=== PATIENT | male | born 1945 | race Caucasian/White ===

== ENCOUNTER 2021-09-27 05:26 | Inpatient (IN) | payer MEDICARE, OTHER ==
[~2021-09-27] VITALS: Ht 180.3 cm; Wt 112.2 kg
--- NOTE | 2021-09-27 05:51 | PHYS DOC ---
Adult General Chief Complaint Chief Complaint: WEAKNESS/GENERALIZED HPI HPI Patient is an 81-year-old male with a past medical history of CAD, CHF, A. fib on Xarelto who presents with a chief complaint of generalized weakness over the last week or so. [facility] [place] [facility]. Denies any headache, change in vision, pain or trouble swallowing, congestion, chest pain, abdominal pain, nausea, vomiting. Does endorse some shortness of breath and cellulitis on his lower legs. (GLENROY ALCAZAR MD) Review of Systems Review of Systems Constitutional: Denies fever or chills [] Eyes: Denies change in visual acuity, redness, or eye pain [] HENT: Denies nasal congestion or sore throat [] Respiratory: Denies cough or shortness of breath [] Cardiovascular: No additional information not addressed in HPI [] GI: Denies abdominal pain, nausea, vomiting, bloody stools or diarrhea [] : Denies dysuria or hematuria [] Musculoskeletal: Denies back pain or joint pain [] Integument: Denies rash or skin lesions [] Neurologic: Denies headache, focal weakness or sensory changes [] Endocrine: Denies polyuria or polydipsia [] All other systems were reviewed and found to be within normal limits, except as documented in this note. (GLENROY ALCAZAR MD) Allergies Allergies Allergies Coded Allergies Type Severity Reaction Last Updated Verified Penicillins Allergy Unknown 09/27/21 Yes (GLENROY ALCAZAR MD) Physical Exam Physical Exam Constitutional: Well developed, well nourished, no acute distress, non-toxic appearance. [] HENT: Normocephalic, atraumatic, bilateral external ears normal, oropharynx moist, no oral exudates, nose normal. [] Eyes: conjunctiva normal, no discharge. [] Neck: Normal range of motion, no tenderness, supple, no stridor. [] Cardiovascular: Tachycardia, irregular rhythm Lungs & Thorax: Bilateral breath sounds, with global rhonchi, and tachypnea, as well as hypoxia on room air Abdomen: soft, no tenderness, no masses, no pulsatile masses. [] Skin: Warm, dry, no erythema, no rash. [] Back: No tenderness, no CVA tenderness. [] Extremities: No tenderness, no cyanosis, no clubbing, ROM intact, no edema. [] Neurologic: Alert and oriented X 3, normal motor function, normal sensory function, no focal deficits noted. [] Psychologic: Affect normal, judgement normal, mood normal. [] (GLENROY ALCAZAR MD) EKG EKG [] (GLENROY ALCAZAR MD) Radiology/Procedures Radiology/Procedures [] (GLENROY ALCAZAR MD) Heart Score C/O Chest Pain: No Risk Factors: Risk Factors: DM, Current or recent (<one month) smoker, HTN, HLP, family history of CAD, obesity. Risk Scores: Risk Factors: DM, Current or recent (<one month) smoker, HTN, HLP, family history of CAD, obesity. (GLENROY ALCAZAR MD) Course & Med Decision Making Course & Med Decision Making Patient is an 9-year-old male who presents with a chief complaint of shortness of breath Vital signs notable for tachycardia with irregular rhythm, tachypnea, hypoxia on room air. Placed on the monitor with IV access established. Placed on 2 L nasal cannula. Patient care handed off to day team. [] (GLENROY ALCAZAR MD) Course & Med Decision Making Patient is an 81-year-old male. His labs are significant for a white count of 24.6. He has elevated liver enzymes and some other abnormal labs. See labs for more details. The patient also has an elevated troponin of 146. Given his tachycardia you have this could be demand ischemia. I do not see ST elevation in his EKG. He is not complaining of chest pain. I have ordered a CT angiogram of the patient's chest due to his presentation as well as an elevated D-dimer. We will give reduced dose due to his creatinine of 2.3. He is getting 30 mL/kg of ideal body weight of fluids. His blood pressure has improved to 128/95 with a MAP of 108. The patient has a penicillin allergy and I have ordered meropenem for broad-spectrum coverage. Further discussion with the patient is reviewed mild penicillin allergy from decades ago. I will also cover the patient with vancomycin. His CT angiogram is negative for pulmonary embolus. His heart rate has decreased to around 100. Most likely source of his sepsis is cellulitis. I will admit the patient to the hospital. I spoke with Dr. Albright and he has accepted the patient for admission. (HUGH HARKINS DO) Dragon Disclaimer Dragon Disclaimer This electronic medical record was generated, in whole or in part, using a voice recognition dictation system. (GLENROY ALCAZAR MD) Departure Departure: Impression: Primary Impression: Cellulitis Additional Impression: Sepsis Disposition: 09 ADMITTED INPATIENT Admitting Physician: Jerrica Albright (HUGH HARKINS DO) Condition: GUARDED Problem Qualifiers Primary Impression: Cellulitis Site of cellulitis: extremity Site of cellulitis of extremity: lower extremity Laterality: left Qualified Codes: L03.116 - Cellulitis of left lower limb Additional Impression: Sepsis Sepsis type: Streptococcus, unspecified Sepsis acute organ dysfunction status: with acute organ dysfunction Severe sepsis acute organ dysfunction type: unspecified Severe sepsis shock status: without septic shock Qualified Codes: A40.9 - Streptococcal sepsis, unspecified; R65.20 - Severe sepsis without septic shock GLENROY ALCAZAR MD Sep 27, 2021 05:51 HUGH HARKINS DO Sep 27, 2021 07:47
[2021-09-27] MEDS ORDERED: IV RINGERS SOLUTION,LACTATED 1,000 ML IV ONE (06:00)
[2021-09-27 06:20] LABS: BASO % 0 % (0-3); EOS % 0 % (0-3); HEMATOCRIT 45.1 % (39.0-53.0); HEMOGLOBIN 14.7 g/dL (13.0-17.5); LYMPH # 0.4 x10^3/uL (1.0-4.8); LYMPH % 2 % (24-48); MEAN CORPUSCULAR HEMOGLOBIN 27 pg (25-35); MEAN CORPUSCULAR HGB CONC 33 g/dL (31-37); MEAN CORPUSCULAR VOLUME 83 fL (79-100); MONO # 0.3 x10^3/uL (0.0-1.1); MONO % 1 % (0-9); NEUT # 23.9 x10^3uL (1.8-7.7); NEUT % 97 % (31-73); PLATELET COUNT 281 x10^3/uL (140-400); RED BLOOD COUNT 5.47 x10^6/uL (4.30-5.70); RED CELL DISTRIBUTION WIDTH 18.4 % (11.5-14.5); WHITE BLOOD COUNT 24.6 x10^3/uL (4.0-11.0)
[2021-09-27] MEDS ORDERED: CONTRAST GIVEN. MC PRN (06:30)
[2021-09-27 06:37] LABS: CALCIUM 9.2 mg/dL (8.5-10.1); CREATININE 2.3 mg/dL (0.7-1.3); GFR 27.5; POTASSIUM 3.5 mmol/L (3.5-5.1)
[2021-09-27 06:44] LABS: ALBUMIN 3.4 g/dL (3.4-5.0); ALBUMIN/GLOBULIN RATIO 0.8 (1.0-1.7); MAGNESIUM 2.4 mg/dL (1.8-2.4); TOTAL BILIRUBIN 1.3 mg/dL (0.2-1.0); TOTAL PROTEIN 7.5 g/dL (6.4-8.2)
--- NOTE | 2021-09-27 06:44 | EKG ---
[address] [address] Test Date: 2021-09-27 Test Time: 06:28:30 Pat Name: BIANCA VAZQUEZ Department: Room: Gender: M Quality Supervisor: AUBREY : 1939-12-03 Requested By: GLENROY ALCAZAR Order Number: [id number] Reading MD: Measurements Intervals [place] Rate: 116 P: [place]: QRS: 42 QRSD: 78 T: 22 QT: 304 QTc: 428 Interpretive Statements ATRIAL FLUTTER ABNORMAL ECG RI6.02 Compared to ECG 09/27/2021 06:26:53 No significant changes
[2021-09-27] MEDS ORDERED: IOHEXOL 350 MG/ML 100 ML VIAL. IV ONE (07:00)
[2021-09-27] MEDS ORDERED: MEROPENEM 1 GM in IV NORMAL SALINE 100ML 100 ML IV STA (07:26)
[2021-09-27] MEDS: NORMAL SALINE IV SCH ×4 (07:51→09:30)
[2021-09-27] MEDS ORDERED: IV NORMAL SALINE 500ML 500 ML ONE (07:56)
--- NOTE | 2021-09-27 07:57 | RAD ---
PQRS Compliance Statement: One or more of the following individualized dose reduction techniques were utilized for this examinat ion: 1. Automated exposure control 2. Adjustment of the mA and/or kV according to patient size 3. Use of iterative reconstruction technique CTA CHEST 09/27/2021 7:35 AM INDICATION: Tachycardia, pneumonia COMPARISON: None available TECHNIQUE: Axial CT images of the chest were obtained after the intravenous administration of nonioni c contrast. Coronal and sagittal reformats are provided. Maximum intensity projection images of the t horacic vasculature are provided. FINDINGS: The thyroid gland is normal in appearance. Calcified mediastinal and right hilar lymph nodes suggest sequela prior granulomatous exposure. There is a right hilar lymph node measuring 0.9 cm. There are n o pathologically enlarged axillary, mediastinal or hilar lymph nodes. The heart size is enlarged. Thr ee-vessel coronary artery vascular calcifications are present. No significant pericardial effusion. T horacic aorta is normal in course and caliber. Moderate calcified atheromatous plaque is identified i nvolving the thoracic aorta. There is adequate opacification of the pulmonary arterial system. There there are no filling defects within the pulmonary arterial system to suggest acute or chronic pulmonary embolus. There is a 4 mm solid noncalcified pulmonary nodule in the right middle lobe (series 4, image 82). Th ere is a 4 mm solid noncalcified pulmonary nodule in the left upper lobe (series 4, image 33). There are no pulmonary infiltrates. There are no pleural effusions. No pulmonary vascular congestion or pne umothorax. Visualized portions of the upper abdomen are within normal limits. Fusiform thickening of the adrenal glands may reflect adenomatous hyperplasia. No suspicious osseous lesions are visualized. IMPRESSION: There is no evidence for acute or chronic pulmonary embolism. There is bronchial wall thickening compatible nonspecific bronchitis. There are at least two 4 mm solid noncalcified pulmonary nodules as detailed above.Fleischner guideli fab for incidentally detected pulmonary nodules suggests no routine follow-up for low risk patients a nd optional CT at 12 months for high risk patients with solid noncalcified pulmonary nodules less anjel n 6 mm in size. Cardiomegaly with three-vessel coronary artery vascular calcifications. Electronically signed by: Trinity Fierro MD (09/27/2021 7:54 AM) [facility]
[2021-09-27] MEDS ORDERED: MEROPENEM 1 GM VIAL IV ONE (08:14)
[2021-09-27] MEDS ORDERED: IV NORMAL SALINE 100ML 100 ML ONE (08:14)
[2021-09-27] MEDS ORDERED: ONDANSETRON PF 4 MG/2 ML VIAL. IVP PRN (08:30)
[2021-09-27] MEDS ORDERED: VANCOMYCIN 2 GM in IV NORMAL SALINE 500ML 500 ML IV ONE (09:00)
[2021-09-27 10:07] LABS: % ATYL 2 % (0-0); % BANDS 21 % (0-9); % LYMPHS 4 % (24-48); % METAS 1 % (0-0); % SEGS 72 % (35-66); PLATELET CLUMP PRESENT
[2021-09-27 10:08] LABS: PLT ESTIMATE ADEQUATE (ADEQUATE)
[2021-09-27 11:02] VITALS: BP 128/73
[2021-09-27] MEDS: ACETAMINOPHEN 325 MG TABLET PO PRN (11:46)
--- NOTE | 2021-09-27 11:58 | NUR ---
PT ARRIVED TO ROOM 111 VIA [facility]. PT ARRIVED WITH A 101.[address] TURNER NOTIFIED AT 1155 OF SEVERE POSITIVE SEPSIS SCREEN. DR. TURNER ORDERED NO MORE FLUIDS, AND CONTINUE WITH VANCO AND MEROPENEM. LACTIC ACID ORDER REPEATED FOR 1258. BLOOD CULTURES ORDERED IN ER. PT ON 2L NASAL CANULA AND RESTING IN BED. PICTURE TAKEN OF LEFT LOWER LEG CELLULITIS.
[2021-09-27] MEDS: VANCOMYCIN PER PHARMACY MC PRN (12:08)
--- NOTE | 2021-09-27 12:10 | NUR ---
Pharmacy Vancomycin Dosing Note S:Consulted to monitor and dose vancomycin started 09/27/21. O:BIANCA VAZQUEZ is a 75 year old M with Cellulitis Sepsis, . Height: 5 feet, 11 inches Weight: 112.2 kg [place] Body Weight: 75.30 Adjusted Body Weight: 90.06 Dosing Weight: Actual Other Antibiotics: MEROPENEM LABS: Last BUN: 25 Last Creatinine: 2.3 Creatinine Clearance: 35.9 Last WBC: 24.6 Last Procalcitonin: Tmax (past 24 hours): Microbiology: I/O: Drug Levels: Last level: on at Last dose given at Vancomycin Dosing: Loading Dose: 2000 mg x1 Dosing Weight: Actual Target Trough: 15-20 A: Based on: BASED ON PHYSICIAN REQUEST FOR DOSING P: 1. Begin Vancomycin 2000MG LOADING DOSE, THEN 1750 mg IV q24h 2. Follow up Trough level on 09/29/21 at 0830 3. Pharmacy will continue to monitor, follow and adjust therapy as needed. JUNE SILVER, 09/27/21 1210
[2021-09-27] MEDS ORDERED: LOSA100T14 PO (12:41)
[2021-09-27] MEDS ORDERED: BUSP10TA PO (12:41)
[2021-09-27] MEDS ORDERED: TRIA10.8 NS (12:41)
[2021-09-27] MEDS ORDERED: EMPA25TA PO (12:41)
[2021-09-27] MEDS ORDERED: CYAN500T17 PO (12:41)
[2021-09-27] MEDS ORDERED: LEVO75TA5 PO (12:41)
[2021-09-27] MEDS ORDERED: RIVA20TA2 PO (12:41)
[2021-09-27] MEDS ORDERED: MELA3TAB43 PO (12:41)
[2021-09-27] MEDS ORDERED: GABA600T7 PO (12:41)
[2021-09-27] MEDS ORDERED: CHOL10004 PO (12:41)
[2021-09-27] MEDS ORDERED: TRIA15OI32 TP (12:41)
[2021-09-27] MEDS ORDERED: DILT240C32 PO (12:41)
[2021-09-27] MEDS ORDERED: ROPI2TAB10 PO (12:41)
[2021-09-27] MEDS ORDERED: METF10007 PO (12:41)
[2021-09-27] MEDS ORDERED: FAMO20TA5 PO (12:41)
[2021-09-27] MEDS ORDERED: SODIUM CHLORIDE OP (12:41)
--- NOTE | 2021-09-27 13:56 | NUR ---
CONSULT CALLED TO CARDIOLOGY FOR ELEVATED TROPONIN AND A-FIB. Addendum: 09/27/21 at 1359 by ELISE BARROS RN SPOKE WITH YUSEF FROM CARDIOLOGY. SHE RECOMMENDED RESTARTING CARDIZEM FOR NOW AND WILL SEE THE PT TOMORROW.
[2021-09-27] MEDS: rOPINIRole 2 MG TABLET. PO SCH ×2 (14:03→20:30)
[2021-09-27] MEDS: IV NORMAL SALINE 1,000ML 1,000 ML IV SCH (14:03)
--- NOTE | 2021-09-27 14:27 | HP ---
DATE OF SERVICE: 09/27/2021 ADMIT DATE: 09/27/2021 HISTORY OF PRESENT ILLNESS: The patient is an 75-year-old male patient who presented to the Emergency Room with a complaint of generalized weakness that has been going on over the last week or so. He states he recently was [facility] [place] [facility] and [facility] to go [facility], but the [facility] di[facility] the ambulance to [facility]. The patient himself denied any headache, change in vision, pain or trouble swallowing. He was extensively investigated in the Emergency Room, has had lab work and imaging studies. His lab work was remarkable for the fact that his white cell count was very high at 24,600. His chemistry showed that he has a creatinine of 2.3, has hyperglycemia and impaired liver enzymes together with lactic acidosis. His troponin I, high sensitivity, is high also at 146 and steadily rising. His D-dimer was high also at 3.34. He had CT angio of the chest, which showed that there is no evidence of acute or chronic pulmonary emboli. There is bronchial wall thickening compatible with nonspecific bronchitis. There are at least 2-4 mm solid noncalcified pulmonary nodules as detailed above, cardiomegaly with 3-vessel coronary vascular calcification. The patient was admitted with sepsis, treated aggressively with IV fluid, started on meropenem and vancomycin. ALLERGIES: HE IS ALLERGIC TO PENICILLIN. PAST MEDICAL HISTORY: Significant for atrial fibrillation, hypertension, hyperlipidemia, type 2 diabetes mellitus, coronary artery disease, hypothyroidism, and generalized osteoarthritis. PAST SURGICAL HISTORY: Significant for cardiac ablation. MEDICATIONS: He is currently on the following medications: He is on Xarelto 20 mg once a day, diltiazem hydrochloride 240 mg daily, losartan potassium 100 mg once a day, gabapentin 300 mg at bedtime, buspirone 10 mg twice a day, allopurinol 2 mg 3 times a day, triamcinolone acetonide 10 mL spray for Nasacort 1 spray to each nostril at bedtime, famotidine 20 mg at bedtime, metformin 1000 mg twice a day, Jardiance 25 mg once a day, levothyroxine sodium 75 mcg once a day, triamcinolone acetonide 5 grams ointment apply topically twice a day, cyanocobalamin 500 mcg daily, cholecalciferol, vitamin D3 at 50 mcg once a day, melatonin 3 mg at bedtime, and sodium chloride saline spray twice a day to both eyes. FAMILY HISTORY: Unobtainable. SOCIAL HISTORY: He is apparently , has a girlfriend that is planning to move to stay with him. He has 5 daughters and 3 sons. He does not smoke, drink alcohol or use recreational drugs. REVIEW OF SYSTEMS: As per history of present illness. PHYSICAL EXAMINATION: GENERAL: On arrival to the Emergency Room, the patient was tachypneic, tachycardic, but there was no pallor, jaundice, cyanosis, no lymphadenopathy, no thyromegaly, no jugular venous distention. No limb edema. VITAL SIGNS: His heart rate was 138, blood pressure was 94/60, temperature was 99.5, respiratory rate 21, and oxygen saturation was 85% on room air. HEAD, EYES, EARS, NOSE, AND THROAT: Normocephalic, atraumatic. NECK: Supple. HEART: Showed normal first and second heart sounds, no gallop or murmur. CHEST: Clear to auscultation. No crepitation or rhonchi. ABDOMEN: Distended, soft, nontender. NEUROLOGIC: He is awake, alert, but has what seemed to be an expressive aphasia; however, all his cranial nerves are intact. He moves extremities without difficulty. EXTREMITIES: Examination of the lower extremities showed no clubbing, cyanosis. His left leg is more erythematous, with lymphangitis extending all the way to the left groin. LABORATORY DATA: His white cell count was 24,600, hemoglobin 14.7, hematocrit 45, MCV 83 and platelet count 281,000 with a manual differential showed 97% polymorphs, 2% lymphocytes, 1% monocytes. His APTT was 34. D-dimer was 3.34. Serum sodium was 132, potassium 3.5, chloride 95, bicarbonate 24, anion gap of 13, BUN 25, creatinine 2.3. Estimated GFR was 27.5. Blood glucose was 172. Lactic acid was 4.1, calcium was 9.2, magnesium 2.4. Total bilirubin, AST, ALT, alkaline, . Troponin I is elevated and rising. His total protein was 7.5, albumin was 3.4. His coronavirus rapid testing was negative and a CT scan was negative for pulmonary embolism and also no evidence of pneumonia. ASSESSMENT AND PLAN: In summary, this is an 75-year-old male patient who was admitted with generalized weakness, was found to have marked leukocytosis and left lower extremity cellulitis and lymphangitis extending all the way to the left groin area. Other medical problems include atrial fibrillation for which he is on diltiazem and Xarelto, type 2 diabetes mellitus, hypertension, hyperlipidemia, hypothyroidism. He apparently has coronary artery disease and generalized osteoarthritis. Has chronic kidney disease. Unfortunately, he has received contrast, so I will probably start him on IV fluid continuously. We will monitor his kidney function closely. Meanwhile, we will continue with IV vancomycin, adjusted by the pharmacist as well as meropenem as HE IS ALLERGIC TO PENICILLIN. CARYN/ESTELA DR: Kadie TID: [id number]
[2021-09-27 15:03] VITALS: BP 120/70
[2021-09-27] MEDS ORDERED: RIVAROXABAN 15 MG TABLET. PO SCH (17:00)
--- NOTE | 2021-09-27 17:00 | NUR ---
PT HAVING CHILLS THEN SWEATY. PT DOES NOT CURRENTLY HAVE A FEVER, ALTHOUGH RECEIVED TYLENOL EARLIER FOR A FEVER. PT RESTING IN BED. PT HAS EXPRESSIVE APHASIA WITH MOMENTS OF BREAKTHROUGH WHERE THE PT MAKES SENSE, BUT OTHERWISE HARD TO DECIPHER WHAT HE IS TRYING TO SAY. PT LACTIC ACID LEVEL BACK WNL.
[2021-09-27 19:47] VITALS: BP 117/73
[2021-09-27] MEDS: MEROPENEM 1 GM in IV NORMAL SALINE 100ML 100 ML IV SCH (20:29)
[2021-09-27] MEDS: FLUTICASONE 50MCG/NASAL SPRAY 16GM BOTTLE. NS SCH (20:29)
[2021-09-27] MEDS: busPIRone 10 MG TABLET. PO SCH (20:30)
[2021-09-27] MEDS: TRIAMCINOLONE ACETONIDE 0.1% TOPICAL OINTMENT 15GM TUBE. TP SCH (20:30)
[2021-09-27] MEDS: GABAPENTIN 300 MG CAPSULE. PO SCH (20:30)
[2021-09-27] MEDS: MELATONIN 3 MG TABLET PO SCH (20:30)
[2021-09-27] MEDS: FAMOTIDINE 20 MG TABLET PO SCH (20:30)
[2021-09-27 23:36] VITALS: BP 119/75
[2021-09-28] MEDS: IV NORMAL SALINE 1,000ML 1,000 ML IV SCH ×2 (04:05→17:13)
[2021-09-28] MEDS: LEVOTHYROXINE 75 MCG TABLET PO SCH (05:15)
[2021-09-28] MEDS: ACETAMINOPHEN 325 MG TABLET PO PRN ×2 (05:15→07:53)
[2021-09-28 05:53] VITALS: BP 116/65
[2021-09-28 06:22] LABS: HEMATOCRIT 36.4 % (39.0-53.0); HEMOGLOBIN 12.1 g/dL (13.0-17.5); RED BLOOD COUNT 4.45 x10^6/uL (4.30-5.70); RED CELL DISTRIBUTION WIDTH 18.3 % (11.5-14.5); WHITE BLOOD COUNT 14.2 x10^3/uL (4.0-11.0)
[2021-09-28 06:34] LABS: ALBUMIN/GLOBULIN RATIO 0.6 (1.0-1.7); CALCIUM 7.9 mg/dL (8.5-10.1); CREATININE 3.6 mg/dL (0.7-1.3); GFR 16.7; POTASSIUM 3.4 mmol/L (3.5-5.1); TOTAL BILIRUBIN 0.6 mg/dL (0.2-1.0); TOTAL PROTEIN 5.6 g/dL (6.4-8.2)
[2021-09-28] MEDS: MEROPENEM 1 GM in IV NORMAL SALINE 100ML 100 ML IV SCH (07:53)
[2021-09-28] MEDS: rOPINIRole 2 MG TABLET. PO SCH ×3 (07:54→21:07)
[2021-09-28] MEDS: busPIRone 10 MG TABLET. PO SCH ×2 (07:54→21:07)
[2021-09-28] MEDS: CHOLECALCIFEROL (VITAMIN D3) 1,000 UNIT TABLET PO SCH (07:54)
[2021-09-28] MEDS: EMPAGLIFLOZIN 25 MG TABLET. PO SCH (07:55)
[2021-09-28] MEDS: CYANOCOBALAMIN (VITAMIN B-12) 100 MCG TABLET PO SCH (07:55)
[2021-09-28] MEDS: TRIAMCINOLONE ACETONIDE 0.1% TOPICAL OINTMENT 15GM TUBE. TP SCH ×2 (07:56→21:07)
--- NOTE | 2021-09-28 08:32 | PDOC2 ---
YUSEF LOPEZ LESLY 09/28/21 0832: CARDIAC CONSULT DATE OF CONSULT DOS: DATE: 09/28/21 TIME: 08:18 REASON FOR CONSULT Reason for Consult Elevated troponin REFERRING PHYSICIAN Referring Physician Dr. Albright SOURCE Source: Chart review, Patient HPI History of Present Illness This is a 75 yo male who presented secondary to weakness for the last week. Was seen at the [facility] the day prior and was reportedly diagnosed with pneumonia and sent home. Continue to be very weak at home and developed redness of the LLE. Wanted to go back to [facility] ED, but they were diverting patients so he was take to [facility] ED. Troponin noted to be elevated, which prompted this consult. He denies any chest pain, shortness of breath, palpitations, dizziness, diaphoresis, or nausea/vomiting. Reports h/o AFIB s/p ablation. Reports he is now always in AFIB. Is on Cardizem for rate control and Xarelto for stroke prophylaxis. Reports multiple falls recently. Has abrasions on bilateral knees. Denies hitting his head. PAST MEDICAL HISTORY Cardiovascular: AFIB (s/p ablation ), CHF, hyperipidemia Musculoskeletal: Osteoarthritis Renal/: Chronic renal insuff Endocrine: Diabetes, Hypothyroidism PAST SURGICAL HISTORY Past Surgical History: Other (ablation ) FAMILY HISTORY Family History: Hypertension SOCIAL HISTORY Smoke: No ALCOHOL: none Drugs: None Lives: Alone CURRENT MEDICATIONS Current Medications Current Medications Lactated Ringer's 1,000 ml @ 1,000 mls/hr 1X ONCE IV Last administered on 09/27/21at 06:02; Start 09/27/21 at 06:00; Stop 09/27/21 at 06:59; Status DC Iohexol (Omnipaque 350 Mg/ml) 100 ml 1X ONCE IV Last administered on 09/27/21at 07:23; Start 09/27/21 at 07:00; Stop 09/27/21 at 07:01; Status DC Info (Do NOT chart on this entry -- for MONITORING) 1 each PRN DAILY PRN MC SEE COMMENTS; Start 09/27/21 at 06:30; Stop 09/29/21 at 06:29 Meropenem 1 gm/ Sodium Chloride 100 ml @ 200 mls/hr 1X STAT IV Last a dministered on 09/27/21at 07:26; Start 09/27/21 at 07:26; Stop 09/27/21 at 07:55; Status DC Sodium Chloride 1,400 ml @ 2,400 mls/hr Q35M IV Last administered on 09/27/21at 08:55; Start 09/27/21 at 07:45; Stop 09/27/21 at 12:04; Status DC Sodium Chloride 500 ml @ As Directed STK-MED ONCE .ROUTE ; Start 09/27/21 at 07:56; Stop 09/27/21 at 07:56; Status DC Meropenem (Merrem) 1 gm STK-MED ONCE IV ; Start 09/27/21 at 08:14; Stop 09/27/21 at 08:14; Status DC Sodium Chloride 100 ml @ As Directed STK-MED ONCE .ROUTE ; Start 09/27/21 at 08:14; Stop 09/27/21 at 08:15; Status DC Vancomycin HCl (Vanco Per Pharmacy) 1 each PRN DAILY PRN MC SEE COMMENTS Last administered on 09/27/21at 12:08; Start 09/27/21 at 08:30 Vancomycin HCl 2 gm/Sodium Chloride 500 ml @ 250 mls/hr 1X ONCE IV Last administered on 09/27/21at 08:51; Start 09/27/21 at 09:00; Stop 09/27/21 at 10:59; Status DC Ondansetron HCl (Zofran) 4 mg PRN Q4HRS PRN IVP NAUSEA/VOMITING; Start 09/27/21 at 08:30; Stop 09/28/21 at 08:29 Acetaminophen (Tylenol) 650 mg PRN Q4HRS PRN PO FEVER > 100.3'F Last administered on 09/28/21at 07:53; Start 09/27/21 at 08:30; Stop 09/28/21 at 08:29 Vancomycin HCl 1.75 gm/Sodium Chloride 500 ml @ 250 mls/hr Q24H IV ; Start 09/28/21 at 09:00 Vancomycin HCl (Vancomycin Trough Level) 1 each 1X ONCE MC ; Start 09/29/21 at 08:30; Stop 09/29/21 at 08:31 Meropenem 1 gm/ Sodium Chloride 100 ml @ 200 mls/hr Q12H IV Last administered on 09/28/21at 07:53; Start 09/27/21 at 20:00 Buspirone HCl (Buspar) 10 mg BID PO Last administered on 09/28/21 07:54; Start 09/27/21 at 21:00 Vitamin D (Vitamin D3) 1,000 unit DAILY PO Last administered on 09/28/21 07 :54; Start 09/28/21 at 09:00 Diltiazem HCl (Cardizem 24hr Cd) 240 mg DAILY PO Last administered on 09/28/21 07:54; Start 09/28/21 at 09:00 Empaglifozin (Jardiance) 25 mg DAILY PO Last administered on 09/28/21 07:55; Start 09/28/21 at 09:00 Famotidine (Pepcid) 20 mg QHS PO Last administered on 09/27/21 20:30; Start 09/27/21 at 21:00 Levothyroxine Sodium (Synthroid) 75 mcg DAILY06 PO Last administered on 09/28/21 05:15; Start 09/28/21 at 06:00 Ropinirole HCl (Requip) 2 mg TID PO Last administered on 09/28/21 07:54; Start 09/27/21 at 14:00 Triamcinolone Acetonide (Kenalog) 1 frandy BID TP Last administered on 09/28/21 07:56; Start 09/27/21 at 21:00 Cyanocobalamin (Vitamin B-12) 200 mcg DAILY PO Last administered on 09/28/21 07:55; Start 09/28/21 at 09:00 Gabapentin (Neurontin) 300 mg QHS PO Last administered on 09/27/21 20:30; Start 09/27/21 at 21:00 Melatonin (Melatonin) 3 mg QHS PO Last administered on 09/27/21 20:30; Start 09/27/21 at 21:00 Fluticasone Propionate (Flonase) 2 spray QHS NS Last administered on 09/27/21 20:29; Start 09/27/21 at 21:00 Rivaroxaban (Xarelto) 15 mg DAILYWSUP PO Last administered on 09/27/21 16:50; Start 09/27/21 at 17:00 Sodium Chloride 1,000 ml @ 75 mls/hr [id number] IV Last administered on 09/28/21 04:05; Start 09/27/21 at 13:45 Active Scripts Active Reported [Sodium Chloride] 2 % OP BID Melatonin 3 Mg Tab.rapdis 1 Tab PO QHS 30 Days Triamcinolone Acetonide 0.1% Oint (Triamcinolone Acetonide) 15 Gm Oint...g. 1 Frandy TP BID Nasacort (Triamcinolone Acetonide) 10.8 Ml [place] 55 Mcg NS QHS 30 Days Ropinirole Hcl 2 Mg Tablet 2 Mg PO TID Xarelto (Rivaroxaban) 20 Mg Tablet 1 Tab PO DAILY 30 Days with food Metformin Hcl 1,000 Mg Tablet 1 Tab PO BID Losartan Potassium 100 Mg Tablet 100 Mg PO DAILY Levothyroxine Sodium 75 Mcg Tablet 1 Tab PO DAILY Gabapentin 600 Mg Tablet 300 Mg PO QHS Famotidine 20 Mg Tablet 1 Tab PO QHS Jardiance (Empagliflozin) 25 Mg Tablet 25 Mg PO DAILY Diltiazem 24HR Cd (Diltiazem Hcl) 240 Mg Cap.er.24h 1 Cap PO DAILY 30 Days B-12 (Cyanocobalamin (Vitamin B-12)) 500 Mcg Tablet 200 Mcg PO DAILY Vitamin D3 (Vitamin D) 25 Mcg Tablet 50 Mcg PO DAILY 1,000 UNITS = 25 MCG Buspirone Hcl 10 Mg Tablet 1 Tab PO BID ALLERGIES Allergies: Coded Allergies: penicillin G (Verified Allergy, Intermediate, ARM SWELLING, 09/28/21) ROS Review of Systems 14 point ROS conducted with pertinent positives noted above in HPI PHYSICAL EXAM General: Alert, Oriented X3, Cooperative, No acute distress HEENT: Atraumatic Lungs: Clear to auscultation Heart: Other (AFIB, rate controlled ) Abdomen: Soft, No tenderness Extremities: Other (LLE erythema ) Neuro: Normal speech, Sensation intact Psych/Mental Status: Mental status NL, Mood NL MUSCULOSKELETAL: Osteoarthritic changes both hands VITALS Vital Signs Vital Signs Date Time Temp Pulse Resp B/P (MAP) Pulse Ox O2 Delivery O2 Flow Rate FiO2 09/28/21 07:54 108 116/65 09/28/21 05:53 100.3 18 93 Nasal Cannula 2.0 LABS LABS Laboratory Tests Test 09/27/21 05:55 09/27/21 06:32 09/27/21 06:33 09/27/21 08:58 White Blood Count 24.6 x10^3/uL (4.0-11.0) Red Blood Count 5.47 x10^6/uL (4.30-5.70) Hemoglobin 14.7 g/dL (13.0-17.5) Hematocrit 45.1 % (39.0-53.0) Mean Corpuscular Volume 83 fL (79-100) Mean Corpuscular Hemoglobin 27 pg (25-35) Mean Corpuscular Hemoglobin Concent 33 g/dL (31-37) Red Cell Distribution Width 18.4 % (11.5-14.5) Platelet Count 281 x10^3/uL (140-400) Neutrophils (%) (Auto) 97 % (31-73) Lymphocytes (%) (Auto) 2 % (24-48) Monocytes (%) (Auto) 1 % (0-9) Eosinophils (%) (Auto) 0 % (0-3) Basophils (%) (Auto) 0 % (0-3) Neutrophils # (Auto) 23.9 x10^3uL (1.8-7.7) Lymphocytes # (Auto) 0.4 x10^3/uL (1.0-4.8) Monocytes # (Auto) 0.3 x10^3/uL (0.0-1.1) Eosinophils # (Auto) 0.0 x10^3/uL (0.0-0.7) Basophils # (Auto) 0.0 x10^3/uL (0.0-0.2) Segmented Neutrophils % 72 % (35-66) Band Neutrophils % 21 % (0-9) Lymphocytes % 4 % (24-48) Atypical Lymphocytes % (Manual) 2 % (0-0) Metamyelocytes % 1 % (0-0) Platelet Estimate Adequate (ADEQUATE) Platelet Clumps, EDTA Present Activated Partial Thromboplast Time 34 SEC (23-33) D-Dimer ([place]) 3.34 mg/L (0.00-0.50) Sodium Level 132 mmol/L (136-145) Potassium Level 3.5 mmol/L (3.5-5.1) Chloride Level 95 mmol/L (98-107) Carbon Dioxide Level 24 mmol/L (21-32) Anion Gap 13 (6-14) Blood Urea Nitrogen 25 mg/dL (8-26) Creatinine 2.3 mg/dL (0.7-1.3) Estimated GFR (Cockcroft-Gault) 27.5 BUN/Creatinine Ratio 11 (6-20) Glucose Level 172 mg/dL (70-99) Calcium Level 9.2 mg/dL (8.5-10.1) Magnesium Level 2.4 mg/dL (1.8-2.4) Total Bilirubin 1.3 mg/dL (0.2-1.0) Aspartate Amino Transf (AST/SGOT) 340 U/L (15-37) Alanine Aminotransferase (ALT/SGPT) 76 U/L (16-63) Alkaline Phosphatase 118 U/L (46-116) Troponin I High Sensitivity 146 ng/L (4-75) 322 ng/L (4-75) Total Protein 7.5 g/dL (6.4-8.2) Albumin 3.4 g/dL (3.4-5.0) Albumin/Globulin Ratio 0.8 (1.0-1.7) Thyroid Stimulating Hormone (TSH) 3.035 uIU/mL (0.358-3.740) Coronavirus (COVID-19)(PCR) Not detected (NOT DETECTD) SARS-CoV-2 Antigen (Rapid) Negative (NEGATIVE) Lactic Acid Level 4.1 mmol/L (0.4-2.0) Test 09/27/21 12:17 09/27/21 13:02 09/27/21 15:15 09/28/21 05:44 Troponin I High Sensitivity 490 ng/L (4-75) 497 ng/L (4-75) Lactic Acid Level 1.4 mmol/L (0.4-2.0) White Blood Count 14.2 x10^3/uL (4.0-11.0) Red Blood Count 4.45 x10^6/uL (4.30-5.70) Hemoglobin 12.1 g/dL (13.0-17.5) Hematocrit 36.4 % (39.0-53.0) Mean Corpuscular Volume 82 fL (79-100) Mean Corpuscular Hemoglobin 27 pg (25-35) Mean Corpuscular Hemoglobin Concent 33 g/dL (31-37) Red Cell Distribution Width 18.3 % (11.5-14.5) Platelet Count 180 x10^3/uL (140-400) Sodium Level 130 mmol/L (136-145) Potassium Level 3.4 mmol/L (3.5-5.1) Chloride Level 97 mmol/L (98-107) Carbon Dioxide Level 22 mmol/L (21-32) Anion Gap 11 (6-14) Blood Urea Nitrogen 40 mg/dL (8-26) Creatinine 3.6 mg/dL (0.7-1.3) Estimated GFR (Cockcroft-Gault) 16.7 BUN/Creatinine Ratio 11 (6-20) Glucose Level 95 mg/dL (70-99) Calcium Level 7.9 mg/dL (8.5-10.1) Total Bilirubin 0.6 mg/dL (0.2-1.0) Aspartate Amino Transf (AST/SGOT) 707 U/L (15-37) Alanine Aminotransferase (ALT/SGPT) 150 U/L (16-63) Alkaline Phosphatase 79 U/L (46-116) Total Protein 5.6 g/dL (6.4-8.2) Albumin 2.0 g/dL (3.4-5.0) Albumin/Globulin Ratio 0.6 (1.0-1.7) ASSESSMENT/PLAN Assessment/Plan 1. Weakness 2. Leukocytosis, lactic acidosis, fevers 3. LLE cellulitis 4. Mild troponin elevation; high sensitivity highest 497. Most probably type II, demand ischemia. CP free 5. CHASE on CKD; Cr ^ 3.6 s/p contrast for CTA 6. CAD noted on chest CTA. Denies prior LHC. 7. Persistent AFIB; previous ablation. rate controlled on Cardizem. on Xarelto for stroke prophylaxis. Follow with [facility] cardiology, Dr. Sue 8. Hypertension; controlled 9. Hyperlipidemia 10. Elevated LFTs 11. Hypothyroidism 12. Elevated d-dimer; CTA negative for PE Recommendations Cardizem for rate control Consider converting Xarelto to Eliquis given poor CrCl. Will d/w primary test carrier Continue IVFs Avoid nephrotoxins Echo to ensure intact LV systolic function Obtain cardiac records from the [facility] No statin with elevated LFTs Ongoing antibiotic therapy, treatment of LLE cellulitis Follow cultures Probable outpatient ischemic evaluation Consider outpatient referral for SARA SANTANA MD 09/28/212112: CARDIAC CONSULT ASSESSMENT/PLAN Assessment/Plan Pt. seen and examined. Agree with above PROGRAMMER ANALYST CONSULTANT note. Continue treatment for cellulitis. Continue rate control. [facility] Supportive care.Thanks. Discussed with nursing staff. YUSEF LOPEZ APRN Sep 28, 2021 08:32 SARA MOJICA MD Sep 28, 2021 21:13
[2021-09-28] MEDS ORDERED: VANCOMYCIN 1.75 GM in IV NORMAL SALINE 500ML 500 ML IV SCH (09:00)
[2021-09-28 10:38] VITALS: BP 90/54
[2021-09-28] MEDS ORDERED: ONDANSETRON PF 4 MG/2 ML VIAL. IVP PRN (11:00)
[2021-09-28] MEDS ORDERED: LIDO:MAALOX 1:1 20 ML SINGLE DOSE. PO ONE (11:00)
[2021-09-28 14:03] VITALS: BP 110/66
--- NOTE | 2021-09-28 14:18 | PN ---
DATE: 09/28/2021 ATTENDING PHYSICIANS: Dr. Albright and Dr. Nguyen. SUBJECTIVE: Swelling, left foot. 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 OBJECTIVE FINDINGS: VITAL SIGNS: Blood pressure this morning is 129/75, pulse is 100 and regular, he is afebrile, oxygen saturation 97% on room air. HEENT: Head is without trauma. Pupils are reactive. Sclerae nonicteric. Oropharynx is clear. NECK: Supple, no bruits. LUNGS: Clear. CARDIOVASCULAR: Showed regular heart tones. No gallop. ABDOMEN: Soft. EXTREMITIES: Show edema. He has erythema and redness extending up to his knees. LABORATORY DATA: Creatinine today is 3.6 mg/dL. Followup labs are done. Troponin level is due to stress demand ischemia. ASSESSMENT: 1. A 75-year-old gentleman with cellulitis, left leg. This is a Staphylococcus infection. 2. [id number] renal failure, etiology due to contrast dye. 3. Known coronary artery disease. 4. Essential hypertension. 5. Type 2 diabetes, non-insulin dependent. 6. Degenerative arthritis. PLAN: 1. Continue vancomycin as ordered, dose adjusted per pharmacy. 2. Serial chemistries. 3. We can stop the meropenem. 4. Recs per Cardiology. CJ/BAKARI DR: CJ/jolanta TID: [id number]
--- NOTE | 2021-09-28 15:24 | NUR ---
YUSEF REQUESTING TO HAVE CARDIOLOGY RECORDS FROM THE [facility]. THIS RN ATTEMPTED TO CONTACT [facility] WITH NO RESPONSE. MESSAGE WAS LEFT IN ATTEMPT TO REACH THEM.
[2021-09-28] MEDS: RIVAROXABAN 10 MG TABLET. PO SCH (17:13)
[2021-09-28 19:00] VITALS: BP 105/61
[2021-09-28] MEDS: FAMOTIDINE 20 MG TABLET PO SCH (21:07)
[2021-09-28] MEDS: GABAPENTIN 300 MG CAPSULE. PO SCH (21:07)
[2021-09-28] MEDS: MELATONIN 3 MG TABLET PO SCH (21:07)
[2021-09-28] MEDS: FLUTICASONE 50MCG/NASAL SPRAY 16GM BOTTLE. NS SCH (21:07)
[2021-09-28] MEDS: LACTOBACILLUS RHAMNOSUS GG 1 CAPSULE. PO SCH (21:07)
[2021-09-28 23:00] VITALS: BP 124/70
[2021-09-29 05:10] VITALS: BP 117/70
[2021-09-29] MEDS: LEVOTHYROXINE 75 MCG TABLET PO SCH (06:08)
[2021-09-29] MEDS: IV NORMAL SALINE 1,000ML 1,000 ML IV SCH (06:08)
[2021-09-29] MEDS: rOPINIRole 2 MG TABLET. PO SCH ×2 (07:36→13:52)
[2021-09-29] MEDS: LACTOBACILLUS RHAMNOSUS GG 1 CAPSULE. PO SCH (07:37)
[2021-09-29] MEDS: CHOLECALCIFEROL (VITAMIN D3) 1,000 UNIT TABLET PO SCH (07:37)
[2021-09-29] MEDS: busPIRone 10 MG TABLET. PO SCH (07:37)
[2021-09-29] MEDS: TRIAMCINOLONE ACETONIDE 0.1% TOPICAL OINTMENT 15GM TUBE. TP SCH (07:38)
[2021-09-29] MEDS: EMPAGLIFLOZIN 25 MG TABLET. PO SCH (07:39)
[2021-09-29] MEDS: CYANOCOBALAMIN (VITAMIN B-12) 100 MCG TABLET PO SCH (07:39)
--- NOTE | 2021-09-29 08:32 | PDOC ---
CARDIO Progress Notes Date & Time Date of Service DATE: 09/29/21 TIME: 08:21 Time of Evaluation 08:21 Subjective Notes Wheezing Vitals Vitals Vital Signs Date Time Temp Pulse Resp B/P (MAP) Pulse Ox O2 Delivery O2 Flow Rate FiO2 09/29/21 07:37 81 117/70 09/29/21 05:10 98.8 18 96 Room Air 09/28/21 08:25 2.0 Weight Weight [ ] Input and Output I.O. Intake and Output 09/29/21 07:00 Intake Total 2360 ml Output Total 600 ml Balance 1760 ml Intake Oral 360 ml IV Total 2000 ml Output Urine Total 600 ml # Voids 2 Laboratory Labs Laboratory Tests Test 09/27/21 08:58 09/27/21 12:17 09/27/21 13:02 09/27/21 15:15 Lactic Acid Level 4.1 mmol/L (0.4-2.0) 1.4 mmol/L (0.4-2.0) Troponin I High Sensitivity 322 ng/L (4-75) 490 ng/L (4-75) 497 ng/L (4-75) Test 09/28/21 05:44 09/28/21 06:05 White Blood Count 14.2 x10^3/uL (4.0-11.0) Red Blood Count 4.45 x10^6/uL (4.30-5.70) Hemoglobin 12.1 g/dL (13.0-17.5) Hematocrit 36.4 % (39.0-53.0) Mean Corpuscular Volume 82 fL (79-100) Mean Corpuscular Hemoglobin 27 pg (25-35) Mean Corpuscular Hemoglobin Concent 33 g/dL (31-37) Red Cell Distribution Width 18.3 % (11.5-14.5) Platelet Count 180 x10^3/uL (140-400) Sodium Level 130 mmol/L (136-145) Potassium Level 3.4 mmol/L (3.5-5.1) Chloride Level 97 mmol/L (98-107) Carbon Dioxide Level 22 mmol/L (21-32) Anion Gap 11 (6-14) Blood Urea Nitrogen 40 mg/dL (8-26) Creatinine 3.6 mg/dL (0.7-1.3) Estimated GFR (Cockcroft-Gault) 16.7 BUN/Creatinine Ratio 11 (6-20) Glucose Level 95 mg/dL (70-99) Calcium Level 7.9 mg/dL (8.5-10.1) Total Bilirubin 0.6 mg/dL (0.2-1.0) Aspartate Amino Transf (AST/SGOT) 707 U/L (15-37) Alanine Aminotransferase (ALT/SGPT) 150 U/L (16-63) Alkaline Phosphatase 79 U/L (46-116) Total Protein 5.6 g/dL (6.4-8.2) Albumin 2.0 g/dL (3.4-5.0) Albumin/Globulin Ratio 0.6 (1.0-1.7) Magnesium Level 2.1 mg/dL (1.8-2.4) Troponin I High Sensitivity 261 ng/L (4-75) Microbiology Micro Microbiology 09/27/21 Blood Culture - Preliminary, Resulted NO GROWTH AFTER 1 DAY... Physical Exams HEENT: Neck Supple W Full Motion Chest: Symmetric Lungs: Clear to Auscultation Heart: irregularly irregular Abdomen: Soft N/T Extremities: Other (LLE erythema, 2+ edema. ) Neurology: alert, oriented, follow commands Assessment Assessment 1. Weakness 2. Leukocytosis, lactic acidosis, fevers 3. LLE cellulitis 4. Mild troponin elevation; high sensitivity highest 497. Most probably type II, demand ischemia. CP free 5. CHASE on CKD; Cr ^ 3.6 s/p contrast for CTA 6. Mild acute probable diastolic CHF secondary to IV hydration 7. CAD noted on chest CTA. Denies prior LHC. 8. Persistent AFIB; previous ablation. rate controlled on Cardizem. on Xarelto for stroke prophylaxis. Follow with [facility] cardiology, Dr. Sue 9. Hypertension; controlled 10. Hyperlipidemia 11. Elevated LFTs 12. Hypothyroidism 13. Elevated d-dimer; CTA negative for PE Recommendations Cardizem for rate control OAC for stroke prevention Avoid nephrotoxins Discontinue IVFs Awaiting repeat lab, OSH records No statin with elevated LFTs Ongoing antibiotic therapy, treatment of LLE cellulitis Follow cultures Outpatient ischemic evaluation Consider outpatient referral for [facility] Supportive care YUSEF LOPEZ APRN Sep 29, 2021 08:32
--- NOTE | 2021-09-29 08:40 | PN ---
DATE: 09/29/2021 ATTENDING PHYSICIANS: Dr. Albright, Dr. Nguyen. SUBJECTIVE: No new complaints. Pain is controlled. Swelling is diminished. OBJECTIVE FINDINGS: VITAL SIGNS: Blood pressure this morning is 117/70 mmHg. He is afebrile. Oxygen saturation 96% on room air, pulse is 81 and regular. HEENT: Head is without trauma. Pupils are reactive. Sclerae nonicteric. Oropharynx is clear. NECK: Supple, no bruits. LUNGS: Clear to auscultation. CARDIOVASCULAR: Showed regular heart tones. No gallops. ABDOMEN: Soft. EXTREMITIES: Showed 2+ edema extending up to his knees. The redness and erythema surrounding the left leg is improved. The swelling is down. There is some wrinkling of the skin, the erythema is fading and dissipating. Lab work is pending this morning. ASSESSMENT: 1. A 75-year-old gentleman with cellulitis of the left leg. This is a Staphylococcus infection. 2. Acute on chronic renal failure, etiology due to contrast. Followup chemistry panel is pending this morning. 3. Known coronary artery disease, stable. 4. Essential hypertension, currently normotensive. 5. Type 2 diabetes. 6. Degenerative arthritis. PLAN: 1. Vancomycin was continued and was managed by pharmacy services. 2. Meropenem is extra and has been stopped. 3. Serial chemistries. 4. He is getting pedal edema from the IV hydration for now, we will stop the IV fluids and wait for his creatinine to drift down. He is drinking well. 5. Recs per Cardiology. CJ/MERRY DR: Michelle TID: [id number]
[2021-09-29] MEDS ORDERED: IPRATRPIUM/ALBUTEROL 0.5/2.5MG 3 ML NEBU. NEB SCH (08:45)
[2021-09-29 09:05] LABS: CALCIUM 8.3 mg/dL (8.5-10.1); CREATININE 4.3 mg/dL (0.7-1.3); GFR 13.6; POTASSIUM 3.8 mmol/L (3.5-5.1)
[2021-09-29 09:09] LABS: VANC TR 26.2 mcg/mL (10.0-20.0)
[2021-09-29] MEDS: IPRATRPIUM/ALBUTEROL 0.5/2.5MG 3 ML NEBU. NEB PRN ×2 (09:10→13:52)
[2021-09-29] MEDS: VANCOMYCIN PER PHARMACY MC PRN (10:13)
--- NOTE | 2021-09-29 13:51 | NUR ---
Pharmacy Vancomycin Dosing Note S:Consulted to monitor and dose vancomycin started 09/27/21. O:BIANCA VAZQUEZ is a 75 year old M with Cellulitis Sepsis, . Height: 5 feet, 11 inches Weight: 112.2 kg [place] Body Weight: 75.30 Adjusted Body Weight: 90.06 Dosing Weight: Actual Other Antibiotics: NONE LABS: Last BUN: 47 Last Creatinine: 4.3 Creatinine Clearance: 19ML/MIN Last WBC: 14.2 Drug Levels: Last Trough level: 26.2 on 09/29/21 at 0830 Last dose given 09/28/21 at 0900 Vancomycin Dosing: Loading Dose: 2000 mg x1 Dosing Weight: Actual Target Trough: 15-20 A: Based on: Supratherapeutic trough, declining kidney function. Hold dose, random level tonight at 2030. Will resume at 1gm q24h after level <20. P: 1. Hold Vancomycin, will resume at 1gm q24h. 2. Follow up Trough level on 10/02/21 at 2030 3. Pharmacy will continue to monitor, follow and adjust therapy as needed. YOLANDA HEATON, 09/29/21 [id number]
[2021-09-29 14:35] VITALS: BP 132/64
[2021-09-29] MEDS ORDERED: ACETAMINOPHEN 500 MG TABLET PO PRN (14:45)
[2021-09-29] MEDS: RIVAROXABAN 10 MG TABLET. PO SCH (15:33)
--- NOTE | 2021-09-29 16:00 | RAD ---
EXAM: PA and Lateral Views of the Chest DATE: 09/29/2021 10:17 AM INDICATION: Reason: SHORTNESS OF BREATH, PNEUMONIA, STAPH INFECTION IN LOWER EXT / Spl. Instructions: / History: COMPARISON: No Prior FINDINGS: The heart is not enlarged. Aortic calcifications. Minimal left lung base patchy opacities likely atelectasis. No pleural effusion or pneumothorax. IMPRESSION: Minimal left lung base patchy opacities likely atelectasis. Electronically signed by: Wolf Hastings MD (09/29/2021 3:58 PM) [id number]
[2021-09-29 16:51] VITALS: BP 107/64
--- NOTE | 2021-09-29 17:56 | NUR ---
Creatinine increased to 4.3 this AM. Discussed labs with LESLY Alegria and Dr. Nguyen. [facility] nephrology consult. Informed girlfriend, Hoa, of transfer. Belongings sent with pt. Pt asked about flip flops he had in ambulance when he left for the hospital. No flip flops in room or noted in pt belongings charted upon arrival. Called ER about flip flops but none found. Report called to ANAMIKA Villasenor at [facility]. Pt to go to room 536. EMS at bedside. Pt discharged @ 8027.
--- NOTE | 2021-09-29 19:38 | DS ---
DATE OF DISCHARGE: 09/29/2021 ATTENDING PHYSICIAN: Dr. Albright. FINAL DISCHARGE DIAGNOSES: 1. Cellulitis, left lower extremity. 2. [id number] renal failure. 3. Type 2 diabetes mellitus. 4. History of coronary artery disease. 5. Essential hypertension. 6. Hypothyroidism, on replacement. 7. Gastroesophageal reflux disease. HISTORY AND PHYSICAL: The patient is a pleasant 75-year-old gentleman, admitted with redness, swelling, erythema involving the anterior surface of his left lower extremity. He is diabetic. He had no recent injuries. He was admitted for further treatment and antibiotic therapy. PHYSICAL EXAMINATION: Please see the dictated note. PERTINENT LABORATORY AND X-RAY STUDIES: Admission CBC was unremarkable; however, he had chronic kidney disease with a creatinine of 2.0 mg percent. Because of contrast dye and other treatments, the next day went up to 3.6 mg percent and the creatinine was 4.3 mg/dL on third day. BUN was adequate. Potassium was within normal range. Sodium was normal. COURSE IN HOSPITAL: The patient was admitted. He was started on intravenous antibiotics. We adjusted the dose of his vancomycin, allowing for renal clearance. He had a slight elevation of the new high sensitivity troponins. Cardiology Service consulted. This was due to stress demand ischemia and the agents. Their recommendation on the chart. He was given some IV hydration, but because of the swelling, I stopped the IV hydration. Unfortunately, his creatinine also peaked a bit. He was asymptomatic; however, recommendation from Cardiology Services was to transfer the patient to [facility] for further evaluation and nephrology consultation in anticipation of potential need for dialysis. At this time, I expect his creatinine to peak a little bit higher before coming back down. We could not give him any diuretics and we had to hold off the IV fluids because of vascular congestion. Therefore, on the third hospital day, arrangements were made for the patient to be transferred by ambulance to [facility]. I spoke with Dr. Carballo who was gracious enough to accept the patient in transfer. His discharge medicines will include for now vancomycin 1.75 grams q. 24 hours, adjusted for renal clearance; vitamin D; Jardiance 25 mg b.i.d.; Pepcid daily; Synthroid 75 mcg daily. He had been on Xarelto. We switched him to Eliquis 5 mg b.i.d. because of renal clearance. BuSpar 10 mg b.i.d., Cardizem 240 daily, and Requip daily. His prognosis is guarded. The patient was then discharged from our hospital to be transferred to [facility] because of acute renal failure. He was in stable condition, given explicit drug and followup care. Total discharge time spent [address]: Michelle TID: [id number]
[2021-09-29] MEDS ORDERED: VANCOMYCIN 1.5 GM in IV NORMAL SALINE 500ML 500 ML IV SCH (21:00)
[2021-09-30] MEDS ORDERED: APIXABAN 5 MG TABLET. PO SCH (09:00)
== END 2021-09-29 17:45 | disposition short-term general hospital (02) | DRG 603 ==
LOC: ER 05:26 → EDBD 08:29 → 1 SOUTH 08:29
PROVIDERS: ADMIT Internal Medicine; ATTEND Internal Medicine
DX: L03.116 Cellulitis of left lower limb (principal); I48.19 Other persistent atrial fibrillation; I24.8 Other forms of acute ischemic heart disease; I13.0 Hypertensive heart and chronic kidney disease with heart failure and stage 1 through stage 4 chronic kidney disease, or unspecified chronic kidney disease; J96.10 Chronic respiratory failure, unspecified whether with hypoxia or hypercapnia; N17.8 Other acute kidney failure; N14.1 Nephropathy induced by other drugs, medicaments and biological substances; S80.211A Abrasion, right knee, initial encounter; S80.212A Abrasion, left knee, initial encounter; X58.XXXA Exposure to other specified factors, initial encounter; N18.9 Chronic kidney disease, unspecified; M15.9 Polyosteoarthritis, unspecified; I25.10 Atherosclerotic heart disease of native coronary artery without angina pectoris; E78.5 Hyperlipidemia, unspecified; E03.9 Hypothyroidism, unspecified; R79.89 Other specified abnormal findings of blood chemistry; E11.22 Type 2 diabetes mellitus with diabetic chronic kidney disease; I50.9 Heart failure, unspecified; E11.65 Type 2 diabetes mellitus with hyperglycemia; R29.6 Repeated falls; B95.8 Unspecified staphylococcus as the cause of diseases classified elsewhere; K21.9 Gastro-esophageal reflux disease without esophagitis; T50.8X5A Adverse effect of diagnostic agents, initial encounter; Z20.822 Contact with and (suspected) exposure to COVID-19; Y92.89 Other specified places as the place of occurrence of the external cause; Z88.0 Allergy status to penicillin; Z82.49 Family history of ischemic heart disease and other diseases of the circulatory system; Z79.84 Long term (current) use of oral hypoglycemic drugs; Z79.01 Long term (current) use of anticoagulants; Y93.89 Activity, other specified; Y99.8 Other external cause status; Z87.01 Personal history of pneumonia (recurrent)
CPT/HCPCS: 36415; 71046; 71275; 80048; 80053; 80061; 80202; 83605; 83735; 84443; 84484; 85007; 85025; 85027; 85379; 85730; 87040; 87426; 93005; 96361; 96365; 96366; J2185; J2405; J3370; J7040; J7120; Q9967; U0003; 97110; 97530; 99285-25; J7030